=== PATIENT | female | born 1960 | race Caucasian/White ===

== ENCOUNTER 2021-08-11 13:38 | Emergency (ER) | payer OTHER ==
[2021-08-11] MEDS ORDERED: FAMOTIDINE 20 MG/50 ML IVPB 20 MG/50 ML MG IVPB ONE ×2 (14:21→14:41)
[2021-08-11] MEDS ORDERED: MAG HYDROX/AL HYDROX/SIMETH 30 ML UNIT-DOSE CUP PO ONE (14:21)
[2021-08-11] MEDS ORDERED: LACTATED RINGERS SOLUTION 1000 ML INFUS.BAG IV ONE (14:21)
[2021-08-11] MEDS ORDERED: ONDANSETRON 4 MG/2 ML VIAL IVPUSH ONE (14:21)
[2021-08-11 14:22] VITALS: TEMP 99.4; BMI 28.3
[2021-08-11] MEDS ORDERED: ONDANSETRON 4 MG/2 ML VIAL ONE (14:41)
[2021-08-11] MEDS ORDERED: MAG HYDROX/AL HYDROX/SIMETH 30 ML UNIT-DOSE CUP ONE (14:41)
[2021-08-11 15:21] LABS: ALBUMIN 3.2 g/dl (3.4-5.0); BILIRUBIN,TOTAL 0.8 mg/dl (0.2-1); CALCIUM 8.6 mg/dl (8.5-10); CREATININE 0.5 mg/dl (0.55-1.3); TOT PROT 5.9 g/dl (6.4-8.2)
[2021-08-11] MEDS ORDERED: POTASSIUM CHLORIDE TABS 20 MEQ TABLET.ER (FP) PO ONE ×2 (15:32→15:40)
[2021-08-11] MEDS ORDERED: KCL 10 MEQ IVPB 10 MEQ/100 ML INFUS.BAG IVPB ONE (15:40)
[2021-08-11] MEDS ORDERED: KCL 10 MEQ IVPB 10 MEQ/100 ML INFUS.BAG IVPB SCH (15:45)
[2021-08-11 16:33] LABS: EPITHELIAL CELLS FEW /hpf
[2021-08-11 16:37] LABS: BASO % 0.3 % (0-2.0); EOS % 0.2 % (0-4.5); HEMATOCRIT 35.5 % (32.4-45.2); HEMOGLOBIN 11.7 GM/dL (10.7-15.3); LYMPH % 17.8 % (8-40); MCH 28.3 pg (25.7-33.7); MEAN CELL VOLUME 85.9 fl (80-96); MEAN PLT VOLUME 7.6 fl (7.5-11.1); MONO % 7.7 % (3.8-10.2); PLATELET COUNT 429 10^3/uL (134-434); RBC 4.13 M/mm3 (3.60-5.2); RDW 13.3 % (11.6-15.6); WHITE BLOOD COUNT 7.4 K/mm3 (4.0-10.0)
[2021-08-11] MEDS ORDERED: ACETAMINOPHEN 500 MG TABLET (FP) PO ONE (18:00)
[2021-08-11] MEDS ORDERED: ACETAMINOPHEN 500 MG TABLET (FP) ONE (18:03)
[2021-08-11 18:32] VITALS: BP 121/68; PULSE 87
== END 2021-08-11 18:15 | disposition home or self-care (01) ==
LOC: FER 13:38
PROC: 3E033GC Introduction of Other Therapeutic Substance into Peripheral Vein, Percutaneous Approach (ICD-10-PCS; principal; 2021-08-11)
DX: U07.1 COVID-19 (principal)
CPT/HCPCS: 36415; 71046-TC-FY; 71250-TC; 80053; 81003; 81015; 84439; 84443; 84484; 85025; 87086; 93005; 96361; 96365; 96375; 99285-25; C9803; U0003; U0005

== ENCOUNTER 2023-11-16 10:18 | Emergency (ER) | payer OTHER ==
[2023-11-16 10:30] VITALS: BP 153/93; PULSE 81; RESP 20; TEMP 98.9; BMI 25.7
[2023-11-16] MEDS ORDERED: CARBAMIDE PEROXIDE 6.5% OTIC 15 ML BOTTLE ONE (11:13)
== END 2023-11-16 12:07 | disposition home or self-care (01) ==
LOC: FER 10:18
PROC: F09Z3XZ Cerumen Management Treatment using Cerumen Management Equipment (ICD-10-PCS; principal; 2023-11-16)
DX: H61.22 Impacted cerumen, left ear (principal)
CPT/HCPCS: 99283-25